=== PATIENT | female | born 1990 | race Caucasian/White ===

== ENCOUNTER 2017-11-02 09:31 | Emergency (ER) | payer OTHER, SELFPAY | END 2017-11-02 10:51 | disposition home or self-care (01) | PROVIDERS: Emergency Provider Nurse Practitioner; Visit Provider Nurse Practitioner | DX: J32.0 Chronic maxillary sinusitis (principal) | CPT/HCPCS: 71020; 87804; 87880; 99201 ==

== ENCOUNTER → 2018-01-15 11:51 | Outpatient (CLI) | payer OTHER, SELFPAY ==
--- NOTE | 2018-01-15 | US_ITS ---
US OB transvaginal HISTORY: Evaluate gestational age in this early gestation ITS.REASON: DTES ORDERING PHYSICIAN: Grayson Lubin MD PATIENT AGE: 28 years COMPARISON: None FINDINGS: There is an intrauterine gestational sac present which measures 1.18 cm with a yolk sac noted measuring 3.5 mm. There may be a very early pole. This however is too small to determine. Unremarkable adnexa. IMPRESSION: Intrauterine gestational sac with yolk sac. Cannot confirm viability at this time due to the small size. Recommend follow-up ultrasound and beta hCG.
[2018-01-15 12:30] LABS: Basophils % 0.3 % (0.1-2.0); Eosinophils % 0.5 % (0.1-12.0); Hematocrit 44.1 % (37.0-47.0); Hemoglobin 14.5 g/dL (12.2-16.2); Lymphocytes # 1.9 K/mm3 (0.7-4.5); Lymphocytes % 23.6 K/mm3 (10-50); Mean Corpuscular HGB Conc 32.9 g/dL (31.8-35.4); Mean Corpuscular Volume 88.1 fl (81-99); Mean Platelet Volume 7.7 fl (7.4-10.4); Monocytes # 0.4 K/mm3 (0.1-1.0); Monocytes % 5.1 % (1.7-9.3); Neutrophils # 5.6 K/mm3 (1.8-7.8); Neutrophils % 70.5 % (37.0-80.0); Platelet Count 303 K/mm3 (142-424); Red Blood Count 5.01 M/mm3 (4.20-5.40); Red Cell Distribution Width 12.5 % (11.5-17.5); White Blood Count 7.9 K/mm3 (4.8-10.8)
[2018-01-18 11:52] LABS: HIV Screen 4th Generation wRfx Non Reactive (Non Reactive); Hepatitis B Surface Antigen Negative (Negative); Hepatitis C Antibody <0.1 s/co ratio (0.0-0.9); Rapid Plasma Reagin Ab Titer Non Reactive (NonRea<1:1); Rubella Antibodies, IgG 2.35 index (Immune >0.99)
== END ==
PROVIDERS: Family Provider Nurse Practitioner Family; Visit Provider Nurse Practitioner Obstetrics & Gynecology
DX: Z34.90 Encounter for supervision of normal pregnancy, unspecified, unspecified trimester (principal)
CPT/HCPCS: 36415; 76830; 85025; 86592; 86703; 86762; 86850; 87340; 87380; G0432

== ENCOUNTER → 2018-01-23 14:40 | Outpatient (CLI) | payer OTHER, SELFPAY ==
--- NOTE | 2018-01-23 14:40 | US_ITS ---
US OB transvaginal HISTORY: Evaluate for gestational age. Follow-up previous exam ITS.REASON: Recheck for DATES ORDERING PHYSICIAN: Grayson Lubin MD PATIENT AGE: 28 years COMPARISON: 01/15/2018 FINDINGS: An intrauterine gestational sac is once again noted with a yolk sac present. There is a question of an pole measuring 1.7 mm. heart tones are still not demonstrated. Cannot confirm viability at this time. Recommend continued follow-up and correlation with beta hCGs. The mean sac diameter is 1.79 cm. Mean gestational sac diameter was not calculated on the previous exam however, the gestational sac does appear slightly larger with the largest diameter at 2.1 cm on today's study previously at 1.2 cm. Adnexa are unremarkable. IMPRESSION: 1. Persistent age gestational sac with yolk sac and possible pole. No heart tones evident. The pole is too small to calculate age. 2. Cannot confirm viability at this time. Recommend continued monitoring with ultrasound and beta hCGs.
[2018-01-23 18:35] LABS: HCG,Quantitative 44124 mIU/mL
== END ==
PROVIDERS: Family Provider Nurse Practitioner Family; Visit Provider Nurse Practitioner Obstetrics & Gynecology
DX: O26.841 Uterine size-date discrepancy, first trimester (principal); Z34.90 Encounter for supervision of normal pregnancy, unspecified, unspecified trimester
CPT/HCPCS: 36415; 76830; 84702

== ENCOUNTER → 2018-01-25 12:23 | Outpatient (CLI) | payer OTHER, SELFPAY | PROVIDERS: PCP Nurse Practitioner Obstetrics & Gynecology; Visit Provider Nurse Practitioner Obstetrics & Gynecology | DX: Z34.90 Encounter for supervision of normal pregnancy, unspecified, unspecified trimester (principal) ==

== ENCOUNTER → 2018-01-25 12:46 | Outpatient (REF) | payer OTHER, SELFPAY | LOC: LAB 12:46 | PROVIDERS: Visit Provider Nurse Practitioner Obstetrics & Gynecology | DX: Z32.00 Encounter for pregnancy test, result unknown (principal) | CPT/HCPCS: 84702 ==

== ENCOUNTER → 2018-01-29 13:54 | Outpatient (CLI) | payer OTHER, SELFPAY ==
--- NOTE | 2018-01-29 14:01 | US_ITS ---
US OB transvaginal HISTORY: Evaluate gestational age ITS.REASON: dates ORDERING PHYSICIAN: Grayson Lubin MD PATIENT AGE: 28 years COMPARISON: 01/23/2018 FINDINGS: An intrauterine gestational sac is present with a pole with a crown-rump length of 0.29cm correlating to gestational age of 6w3d. heart tones are still not identified. The crown-rump length has however slightly increased in size. Follow-up exam recommended. Yolk sac is once again noted but has a somewhat thickened appearance compared to the previous exam. IMPRESSION: pole is once again noted with a crown-rump length correlating to gestational age of 6 weeks and 3 days. heart tones however are not demonstrated. Cannot confirm viability at this time. The yolk sac is also somewhat thickened. Suggest continued follow-up as well as correlation with beta hCGs.
== END ==
PROVIDERS: Family Provider Nurse Practitioner Family; PCP Nurse Practitioner Obstetrics & Gynecology; Visit Provider Nurse Practitioner Obstetrics & Gynecology
DX: O26.841 Uterine size-date discrepancy, first trimester (principal)
CPT/HCPCS: 76830

== ENCOUNTER → 2018-02-05 09:47 | Outpatient (CLI) | payer OTHER, SELFPAY ==
--- NOTE | 2018-02-05 10:04 | US_ITS ---
US OB transvaginal HISTORY: Follow-up early gestation ITS.REASON: FU OB ORDERING PHYSICIAN: Grayson Lubin MD PATIENT AGE: 28 years COMPARISON: 01/29/2018 FINDINGS: There is an intrauterine gestational sac chest a somewhat irregular appearance. A small area of increased echogenicity is present along the inferior wall the gestational sac and may be due to a collapsing yolk sac. No pole or heart tones evident. Unremarkable adnexa. IMPRESSION: Intrauterine gestational sac with a somewhat irregular appearance with collapsing yolk sac and no obvious pole or heart tones consistent with nonviable gestation
[2018-02-05 12:05] LABS: HCG,Quantitative 39635 mIU/mL
== END ==
PROVIDERS: Family Provider Nurse Practitioner Family; PCP Nurse Practitioner Obstetrics & Gynecology; Visit Provider Nurse Practitioner Obstetrics & Gynecology
DX: Z34.90 Encounter for supervision of normal pregnancy, unspecified, unspecified trimester (principal)
CPT/HCPCS: 76830; 84702

== ENCOUNTER → 2019-06-17 16:29 | Outpatient (CLI) | payer OTHER, SELFPAY ==
[2019-06-17 16:52] LABS: Basophils % 0.3 % (0.1-2.0); Eosinophils # 0.1 K/mm3 (0.0-0.4); Eosinophils % 0.7 % (0.1-12.0); Hematocrit 39.7 % (37.0-47.0); Lymphocytes # 1.8 K/mm3 (0.7-4.5); Lymphocytes % 22.4 % (10-50); Mean Corpuscular HGB Conc 32.7 g/dL (31.8-35.4); Mean Corpuscular Hemoglobin 27.5 pg (27.0-31.2); Mean Corpuscular Volume 84.2 fl (81-99); Mean Platelet Volume 7.2 fl (7.4-10.4); Monocytes # 0.4 K/mm3 (0.1-1.0); Monocytes % 5.3 % (1.7-9.3); Neutrophils # 5.8 K/mm3 (1.8-7.8); Neutrophils % 71.3 % (37.0-80.0); Platelet Count 338 K/mm3 (142-424); Red Blood Count 4.71 M/mm3 (4.20-5.40); Red Cell Distribution Width 13.5 % (11.5-17.5); White Blood Count 8.2 K/mm3 (4.8-10.8)
[2019-06-19 08:17] LABS: HIV Screen 4th Generation wRfx Non Reactive (Non Reactive)
[2019-06-19 11:13] LABS: Hepatitis B Surface Antigen Negative (Negative); Hepatitis C Antibody <0.1 s/co ratio (0.0-0.9); Rapid Plasma Reagin Ab Titer Non Reactive (NonRea<1:1); Rubella Antibodies, IgG 1.92 index (Immune >0.99)
== END ==
PROVIDERS: Visit Provider Nurse Practitioner Obstetrics & Gynecology
DX: Z34.90 Encounter for supervision of normal pregnancy, unspecified, unspecified trimester (principal)
CPT/HCPCS: 36415; 85025; 86592; 86703; 86762; 86850; 87340; 87380; G0432

== ENCOUNTER → 2019-06-18 12:03 | Outpatient (CLI) | payer OTHER, SELFPAY ==
[2019-06-18 13:37] LABS: HCG,Quantitative 3217 mIU/mL
== END ==
PROVIDERS: Visit Provider Nurse Practitioner Obstetrics & Gynecology
DX: Z34.90 Encounter for supervision of normal pregnancy, unspecified, unspecified trimester (principal)
CPT/HCPCS: 36415; 84702

== ENCOUNTER → 2019-06-25 12:09 | Outpatient (CLI) | payer OTHER, SELFPAY ==
--- NOTE | 2019-06-25 12:12 | US_ITS ---
PROCEDURE: US OB TRANSVAGINAL CLINICAL INDICATION: Recheck fetus/DATES COMPARISON: [facility] US OB transvaginal from 02/05/2018 FINDINGS: An intrauterine gestational sac is present with a pole with a crown-rump length of 0.52 cm correlating to gestational age of 6.29 week. heart tones are present with an FHR of 115 bpm. Yolk sac is noted. Adnexa: There is a 1.7 cm right ovarian cyst IMPRESSION: Live intrauterine gestation with a gestational age of 6 weeks 2 days Estimated due date by Ultrasound is 02/16/2020 Dictated by: Josr Bear MD 06/26/2019 14:24 Signed by: <Electronically signed by Josr Bear MD in [place]> 06/26/2019 14:24
== END ==
PROVIDERS: PCP Nurse Practitioner Obstetrics & Gynecology; Visit Provider Nurse Practitioner Obstetrics & Gynecology
DX: Z34.90 Encounter for supervision of normal pregnancy, unspecified, unspecified trimester (principal)
CPT/HCPCS: 76817

== ENCOUNTER → 2019-09-30 12:43 | Outpatient (CLI) | payer OTHER, SELFPAY ==
--- NOTE | 2019-09-30 12:45 | US_ITS ---
PROCEDURE: US OB /MATERNAL DETAIL CLINICAL INDICATION: US OB Complete COMPARISON: US OB TRANSVAGINAL from 06/25/2019 FINDINGS: Single viable intrauterine gestation. Breech position. Placenta: Anteriorplacenta grade 1. There is average amount fluid. The cervix appears satisfactory. Closed and measuring 3 cm in length. Complete survey performed and was unremarkable on the submitted images as in PACS. No discrete anomalies identified on survey imaging by technologist. Active fetus. Three-vessel cord with satisfactory umbilical cord insertion. 4- chamber heart noted. Survey of brain & ventricles Unremarkable. Face and neck survey unremarkable. Diaphragm and chest views unremarkable. Abdomen: Both kidneys noted and unremarkable. Stomach noted and satisfactory. Spine: Survey of the spine satisfactory with no anomalies identified nor imaged. Both arms and legs noted. Amniotic Fluid: Adequate. Maternal adnexa: No significant findings. Measurements: Average ultrasound age 20 weeks 4 days. Gestational Age 20 weeks 1 day Estimated due date by ultrasound age 0402/13/2020. Estimated weight 353.1 ggrams. BPD = 20/6 OFD = 21/2 HC = 20/3 AC = 20/4 FL = 20/2 Growth Percentile= 62 percent% Heart Rate = 155 bpm Cerebellum = 20/4 Humerus = 21/1 HC/AC is 1.16 CI is 0.77 FL/BPD is 0.67 FL/AC is 0.21 IMPRESSION: There is a single live fetus which is in breech presentation with an average ultrasound age 20 weeks and 4 days. All parameters correlate with no obvious anomalies. Please see above for detail Dictated by: Josr Bear MD 09/30/2019 17:37 Electronically signed by Josr Bear MD in [place] 09/30/2019 17:37
== END ==
PROVIDERS: PCP Nurse Practitioner Obstetrics & Gynecology; Visit Provider Nurse Practitioner Obstetrics & Gynecology
DX: Z36.0 Encounter for antenatal screening for chromosomal anomalies (principal)
CPT/HCPCS: 76811

== ENCOUNTER → 2019-11-12 08:20 | Outpatient (CLI) | payer OTHER, SELFPAY ==
[2019-11-12 08:45] LABS: Glucose,Fasting 96 mg/dL (60-105)
[2019-11-12 10:07] LABS: Glucose 1 Hour 107 mg/dL (74-106)
== END ==
PROVIDERS: Visit Provider Nurse Practitioner Obstetrics & Gynecology
DX: Z34.90 Encounter for supervision of normal pregnancy, unspecified, unspecified trimester (principal)
CPT/HCPCS: 36415; 82951

== ENCOUNTER → 2019-12-09 15:15 | Outpatient (CLI) | payer OTHER, SELFPAY ==
--- NOTE | 2019-12-09 15:16 | CA_ITS ---
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: CT Indications dvt in , swollen right foot, calf Vein Imaging CFV (R): compressive, spontaneous, phasic, augmentation SFJ (R): compressive, spontaneous, phasic, augmentation FEM (R): compressive, spontaneous, phasic, augmentation POP (R): compressive, spontaneous, phasic, augmentation DFV (R): compressive, spontaneous, phasic, augmentation PTV (R): compressive, spontaneous, phasic, augmentation GSV (R): compressive, spontaneous, phasic, augmentation SSV (R): compressive, spontaneous, phasic, augmentation Peroneals (R):compressive, spontaneous, phasic, augmentation GAS (R): compressive, spontaneous, phasic, augmentation Findings RLE negative for DVT/SVT Vessels fully compressible. Conclusion No evidence of DVT or superficial thrombophlebitis in the veins scanned of the right lower extremity. Electronically signed by : Josr Bear MD 12/10/2019 18:16:19
== END ==
PROVIDERS: Visit Provider Nurse Practitioner Obstetrics & Gynecology
DX: O22.30 Deep phlebothrombosis in pregnancy, unspecified trimester (principal)
CPT/HCPCS: 93971

== ENCOUNTER → 2020-01-20 17:58 | Outpatient (CLI) | payer OTHER, SELFPAY | PROVIDERS: Visit Provider Nurse Practitioner Obstetrics & Gynecology | DX: Z34.90 Encounter for supervision of normal pregnancy, unspecified, unspecified trimester (principal) | CPT/HCPCS: 86403 ==

== ENCOUNTER 2020-01-27 11:53 | Inpatient (IN) ==
[2020-01-27 12:46] LABS: Microscopic, Urine URINE MICROSCOPIC (MICROSCOPIC)
[2020-01-27 12:48] LABS: Appearance,Urine CLEAR (Clear); Bilirubin,Urine Negative (Negative); Blood, Urine TRACE-I (Negative); Color,Urine YELLOW (Yellow); Glucose,Urine (UA) Negative (Negative); Ketones,Urine Negative (Negative); Leukocyte Esterase,Urine Negative (Negative); Protein,Urine Negative (Negative); Urobilinogen,Urine 0.2 EU/dl (0.2)
[2020-01-27 12:56] LABS: Bacteria,Urine Trace /lpf; RBC,Urine Occasional #/hpf (0-3); WBC,Urine Occasional #/hpf (0-3)
[2020-01-27 12:58] LABS: Amphetamine/Metha Screen,Urine Negative ng/ml (<1000)
[2020-01-27 12:59] LABS: Barbiturates Screen,Urine Negative ng/ml (<200)
[2020-01-27 13:00] LABS: Anion Gap 12.7 mEq/L (5-15); Calcium 9.3 mg/dl (8.4-10.2); Uric Acid 5.4 mg/dl (2.5-6.2)
[2020-01-27 13:00] LABS: Benzodiazepines Screen,Urine Negative ng/ml (<200); Cannabinoid Screen,Urine Negative ng/ml (<50)
[2020-01-27 13:01] LABS: Cocaine Screen,Urine Negative ng/ml (<300)
[2020-01-27 13:02] LABS: Methadone Screen,Urine Negative ng/ml (<300); Opiate Screen,Urine Negative ng/ml (<300)
[2020-01-27 13:03] LABS: Phencyclidine Screen,Urine Negative ng/ml (<25)
[2020-01-27 13:07] LABS: Basophils % 0.2 % (0.1-2.0); Eosinophils # 0.1 K/mm3 (0.0-0.4); Eosinophils % 0.4 % (0.1-12.0); Hematocrit 34.7 % (37.0-47.0); Hemoglobin 11.5 g/dL (12.2-16.2); Lymphocytes # 1.9 K/mm3 (0.7-4.5); Lymphocytes % 12.6 % (10-50); Mean Corpuscular HGB Conc 33.1 g/dL (31.8-35.4); Mean Corpuscular Volume 82.7 fl (81-99); Mean Platelet Volume 8.4 fl (7.4-10.4); Monocytes # 0.7 K/mm3 (0.1-1.0); Monocytes % 4.7 % (1.7-9.3); Neutrophils # 12.4 K/mm3 (1.8-7.8); Neutrophils % 82.3 % (37.0-80.0); Platelet Count 300 K/mm3 (142-424); Red Blood Count 4.19 M/mm3 (4.20-5.40); Red Cell Distribution Width 13.9 % (11.5-17.5); White Blood Count 15.1 K/mm3 (4.8-10.8)
[2020-01-27 13:31] LABS: Activated Partial Thrombo Time 25.2 seconds (23.6-34.0); INR 0.9 (0.9-1.1); Prothrombin Time 9.4 seconds (9.4-11.8)
[2020-01-27 13:35] LABS: Eosinophils % 1 % (0-3); Lymphocytes % 13 % (10-50); Monocytes % 6 % (2-9); Neutrophils % 80 % (42-76); RBC Morphology Normal; Total Cells Counted 100
--- NOTE | 2020-01-28 08:11 | Progress Note ---
Labor Note - Subjective: Date: 01/28/20 Time: 08:09 regular contraction - Objective: NST:: Reactive Contractions:: every 2-3 minutes Effacement:: 75% Station: -2 Membranes: artificially ruptured Comment:: Clear fluid - Fetus: Monitoring?: Yes monitoring type:: External - Assessment: Labor progressing?: Yes Cephalopelvic disproportion?: No Patient Problems: All Active Problems Edema of lower extremity (Acute) Maxillary sinusitis, acute (Acute) (Acute) - Plan: Anesthesia for epidural?: Yes Continue to labor down?: Yes Plan for ?: No Continue to monitor?: Yes Start pushing?: No
--- NOTE | 2020-01-28 08:14 | History & Physical Report ---
OB - H&P: HPI Antepartum - History of Present Illness Chief complaint: Increased blood pressure History of present illness: She is a 30-year-old 1 para 0 who was seen in my office. She had increased blood pressure. Her blood pressure was 150/101. She had a headache, brisk reflexes and 2 beats of clonus. As result of that we are admitting her for observation and delivery. - History of Present Criteria for establishing EDC:: LMP confirmed by 1st trimester US care: good care Ultrasounds: normal 1st trimester US, normal mid trimester US Obstetrical complications: preeclampsia Medical complications: none [facility] History I have reviewed the patient's past medical history: Yes 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: Denies:: Cancer, Diabetes Mellitus Type 1, Diabetes Mellitus Type 2, Hypertension, MRSA *Have you ever received a pneumonia vaccine?: No *Have you received a flu vaccine this season?: Yes Other 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: Reports: Other Other Surgeries: Yes: No Previous Surgery. 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 Review of Systems - Review of Systems Review of systems:: pertinent systems reviewed and negative unless documented below Meds Home Medications Medication Instructions Recorded Confirmed Type prenat.vits,biju,asm-kzdo-ozivj 1 tab PO DAILY 10/08/19 01/27/20 History RX: Ferrous Sulfate 325 mg PO DAILY 01/27/20 01/27/20 History Allergies Allergy/AdvReac Type Severity Reaction Status Date / Time cefaclor [From [facility]] Allergy Unknown Verified 01/27/20 11:08 OB - H&P: Exam - Physical Exam Vital signs: Temp Pulse Resp BP Pulse Ox 97.5 F L 93 H 20 122/96 H 98 01/28/20 07:20 01/28/20 07:20 01/28/20 07:20 01/28/20 07:20 01/28/20 07:20 - Constitutional no acute distress - Routine HEENT Exam Head: Present: normocephalic Eye: Present: EOMI, PERRL ENT: Present: mucous membranes moist - Routine Neck Exam Present: supple, full ROM - Routine Respiratory Exam Absent: accessory muscle use (good air entry bilaterally), respiratory distress, wheezes, crackles - Routine Cardiovascular Exam Present: RRR. Absent: murmur - Routine Abdominal Exam Present: soft, normoactive bowel sounds. Absent: tenderness, distended, guarding - Routine Rectal Exam Patient deferred: visual exam, digital exam - Routine Exam Patient deferred: external exam, groin exam, perineal exam - Routine Extremities Exam Present: full ROM. Absent: cyanosis, edema - Routine Skin Exam Present: intact. Absent: cyanosis - Routine Neurological Exam Present: alert, oriented X3 - Routine Psychiatric Exam Present: normal affect OB - Results - Labs Labs: Short CBC 01/27/20 Range/Units 12:27 WBC 15.1 H (4.8-10.8) K/mm3 Hgb 11.5 L (12.2-16.2) g/dL Hct 34.7 L (37.0-47.0) % Plt Count 300 (142-424) K/mm3 BMP 01/27/20 12:27 Sodium 135 L Potassium 3.7 Chloride 106 Carbon Dioxide 20 L BUN 7 Creatinine 0.60 Glucose 75 Calcium 9.3 Liver Function 01/27/20 Range/Units 12:27 AST 24 (14-36) U/L ALT 14 (12-78) U/L Urine 01/27/20 Range/Units 12:05 Urine Color Yellow (Yellow) Urine Appearance Clear (Clear) Urine pH 6.0 (5.0-8.5) Ur Specific [place] 1.010 (1.005-1.030) Urine Protein Negative (Negative) Urine Glucose (UA) Negative (Negative) OB - A/P Antepartum (1) induced hypertension Current visit: Yes Status: Acute (2) Large for gestational age fetus affecting management of mother Current visit: Yes Status: Acute - Additional Plan Planning to breastfeed?: Yes Plan: induction Additional Information:: She is 37 weeks with a large for gestational age . Her blood pressure is elevated. As result of that we are going to induce her labor.
--- NOTE | 2020-01-28 09:36 | Progress Note ---
[facility] Anesthesia Checklist - Structural Data Admitted From: Inpatient Planned Operative Procedure/s: labor epidural Consent for Planned Operative Procedure(s) Verified: Yes - Airway Assessment C-Spine Mobility Assessed: Yes TMJ Mobility Assessed: Yes Dentition: Good Dentition - Neurological Assessment Level of Consciousness: Awake, Alert, Appropriate - Anesthesia Plan Anesthesia Risk discussed: Yes Anesthesia Plan: Verified ASA Class: II Anesthesia Type: Epidural [facility] History I have reviewed the patient's past medical history: Yes 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: Denies:: Cancer, Diabetes Mellitus Type 1, Diabetes Mellitus Type 2, Hypertension, MRSA *Have you ever received a pneumonia vaccine?: No *Have you received a flu vaccine this season?: Yes Other 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: Reports: Other Anesthesia experience/problems:: none Other Surgeries: Yes: No Previous Surgery. 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
--- NOTE | 2020-01-28 11:31 | Progress Note ---
Labor Note - Subjective: Date: 01/28/20 Time: 11:30 regular contraction - Objective: NST:: Reactive Contractions:: every 2-3 minutes Cervical Dilation:: 4 Effacement:: 100% Station: -2 Membranes: artificially ruptured - Fetus: Monitoring?: Yes monitoring type:: Internal Comment:: I inserted an IUPC as well as a scalp clip. - Assessment: Labor progressing?: Yes Cephalopelvic disproportion?: No Patient Problems: All Active Problems Large for gestational age fetus (Acute) induced hypertension (Acute) Large for gestational age fetus affecting management of mother (Acute) Edema of lower extremity (Acute) Maxillary sinusitis, acute (Acute) (Acute) - Plan: Anesthesia for epidural?: Yes Continue to labor down?: Yes Plan for ?: No Continue to monitor?: Yes Start pushing?: No
--- NOTE | 2020-01-28 15:31 | Procedure Note ---
- Delivery Note Delivery Date:: 01/28/20 Delivery Time:: 14:16 Anesthesia Type: Epidural Was labor medically induced?: Yes Induction method: other Gestational age (weeks): 37 Infant delivered prior to 39 weeks?: Yes Justification for early elective delivery:: Pre-eclampsia Infant Gender: Male at 1 minute: 8 at 5 minutes: 9 LAC or MLE?: LAC Delivery Procedure:: She is a 30-year-old 1 para 0 at 37+ weeks gestational age. She was seen in my office yesterday and had increased blood pressure with her blood pressure being 150/101. She had a mild headache. She had brisk reflexes and 2 beats of clonus. Her uric acid was slightly elevated. As result of that we elected to induce her labor at term. She was started on Cervidil in the evening of January 27, 2020. The following morning she had her membranes ruptured and was started on IV oxytocin. She progressed under labor epidural to full dilation. She delivered spontaneously a liveborn male child at 2:16 PM in the afternoon of January 28, 2020. On deliver the head the anterior shoulder then easily delivered followed by the rest the infant's body atraumatically. The oropharynx and nasopharynx were bulb suction. The baby was vigorous. We allowed the cord to continue to pulsate for approximately 1 minute. The cord was then doubly clamped and cut. The baby was then placed on the mother's abdomen for further care. The nurses assigned Apgars of 8 at 1 minute and 9 at 5 minutes. We then obtained cord blood as well as cord pH. She received IV oxytocin and using gentle traction on the cord and countertraction on the fundus I was able to easily deliver the placenta intact at 2:20 PM. He had a normal three-vessel cord. There is a small first-degree vaginal laceration that was repaired with interrupted 3-0 Vicryl Rapide suture. Her estimated blood loss was approximately 400 cc. Laceration:: vaginal Placental Delivery Description: Spontaneous
[2020-01-29 06:16] LABS: Hematocrit 31.8 % (37.0-47.0); Hemoglobin 10.5 g/dL (12.2-16.2)
--- NOTE | 2020-01-29 11:18 | Progress Note ---
Internal Medicine - PN: Subj *Date: 01/29/20 *Time: 11:17 Interval history: She is doing very well this morning. She is eating and drinking and ambulating. She is bottlefeeding. Her lochia is normal. Exam Vital signs and Labs for Last 24 Hours: Temp Pulse Resp BP Pulse Ox 98.1 F 89 18 122/75 98 01/28/20 16:00 01/28/20 16:00 01/28/20 16:00 01/28/20 16:00 01/28/20 16:00 Laboratory Results - last 24 hr 01/28/20 14:26: Cord ABG pH 7.14 L* 01/29/20 05:20: Hgb 10.5 L, Hct 31.8 L I & O for Last 24 hours: Intake & Output 01/26/20 01/27/20 01/28/20 01/29/20 11:59 11:59 11:59 11:59 Weight 200 lb - Constitutional no acute distress - *Routine HEENT Exam Head: Present: normocephalic Eye: Present: EOMI, PERRL ENT: Present: mucous membranes moist Assessment and Plan (1) induced hypertension Current visit: Yes Status: Acute Category: Medical Code(s): O13.9 - Gestational [-induced] hypertension without significant proteinuria, unspecified trimester (2) Large for gestational age fetus affecting management of mother Current visit: Yes Status: Acute Category: Medical Code(s): O36.60X0 - Maternal care for excessive growth, unspecified trimester, not applicable or unspecified (3) Normal delivery Current visit: Yes Status: Acute Category: Medical Code(s): O80 - Encounter for full-term uncomplicated delivery - Assessment and plan all Dx Assessment and Plan for all problems:: She is doing very well today. We will plan to send her home tomorrow.
--- NOTE | 2020-01-30 09:08 | Discharge Summary ---
General - General Admission date:: 01/27/20 Discharge date: 01/30/20 HPI HPI: She is a 30-year-old 3 now para 1 aborta 2 who is 37+ weeks gestational age. She was noted to have increased blood pressure in my office and also had a large for gestational age infant. As result of that we elected to bring her in for induction of labor. Hospital Course Hospital Course: On 28 April 2020 she was brought in for Cervidil and then started on IV oxytocin. Under labor epidural she progressed to full dilation and delivered spontaneously a liveborn male child at 2:16 PM in the afternoon of January 28, 2020. The baby weighed 7 pounds 8 ounces and was 19 inches long. He had Apgars of 8 at 1 minute and 9 at 5 minutes. She has done well and has remained afebrile throughout her hospitalization. She is eating and drinking and ambulating. She is bottlefeeding. Her lochia is normal. She has a positive blood, she is rubella immune and was group B streptococcus negative. 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 Jimenez. She is discharged home to follow-up with me in approximately 2 weeks time. She will continue with her vitamins and iron. She is just taking [id number] analgesics. Her condition on discharge is stable and improved. Rhogam Administration: Not Indicated Objective Vital signs: Temp Pulse Resp BP Pulse Ox 98.1 F 87 17 126/72 98 01/29/20 16:00 01/29/20 16:00 01/29/20 16:00 01/29/20 16:00 01/28/20 16:00 no acute distress - *Routine HEENT Exam Head: Present: normocephalic Eye: Present: EOMI, PERRL ENT: Present: mucous membranes moist DS: Diagnosis - Discharge Diagnosis (1) induced hypertension Status: Acute (2) Large for gestational age fetus affecting management of mother Status: Acute (3) Normal delivery Status: Acute Discharge Plan - Patient Discharge Instructions ACTIVITY: No heavy lifting DIET: continue same diet Additional Instructions: NO HEAVY LIFTING OR STRENUOUS ACTIVITY NOTHING IN VAGINA FOR [address] FOLLOW-UP WITH DR. FISCHER ON Patient Instructions: Depression, Hemorrhage, DI for Pre- eclampsia, DI for Vaginal Discharge, [facility] Post Discharge Instructions - Follow up Plan Disposition: Home, Self-Usp Medications: Home Medications Medication Instructions Recorded Confirmed Type prenat.vits,biju,kwx-bblt-ixpbz 1 tab PO DAILY 10/08/19 01/27/20 History Ferrous Sulfate 325 mg PO DAILY 01/27/20 01/27/20 History Prescriptions/Medication Reconciliation: Continued prenat.vits,biju,nzu-yttq-vdvyx 1 tab PO DAILY Ferrous Sulfate 325 mg PO DAILY - Problem Reconciliation Problems Reviewed?: Yes
== END 2020-01-30 10:32 | disposition home or self-care (01) | DRG 807 ==
LOC: OBOUT 11:53 → OB 11:55
PROVIDERS: ADMIT Nurse Practitioner Obstetrics & Gynecology; ATTEND Nurse Practitioner Obstetrics & Gynecology
CPT/HCPCS: 36415; 59025; 76819; 80048; 80305; 81001; 82800; 84450; 84460; 84550; 85007; 85014; 85018; 85025; 85378; 85384; 85610; 85730; 86850; C1758; J0595

== ENCOUNTER 2021-12-14 15:30 | Emergency (ER) | payer OTHER, SELFPAY ==
[2021-12-14 16:00] VITALS: BP 134/86; PULSE 105; RESP 18; TEMP 37.2; O2SAT 98; BMI 26.6
[2021-12-14 16:07] LABS: Influenza A, PCR Not Detected (NotDetected); Influenza B, PCR Not Detected (NotDetected)
--- NOTE | 2021-12-14 16:32 | [facility].EDUTC ---
[facility] [place] Clinical Impression: URI (upper respiratory infection) Qualifiers: URI type: unspecified URI Qualified Code(s): J06.9 - Acute upper respiratory infection, unspecified Disposition: Home, Self-Care Condition on Discharge: Good Instructions: Sore Throat, Acute Bronchitis, DI for COVID-19 (Suspected or Confirmed ), Preventing the Spread of Coronavirus Discharge Instructions Additional Instructions: *Monitor Temp, Over the counter Motrin or Tylenol as directed/as needed Tylenol every 4 hours and Motrin every 6 hours (as long as your family doctor has told you that you can take it) for fever or pain. and straight to ER if unable to lower temp less than 101.0 after medication given *Warm salt water gargles may help to soothe the throat *Throat Lozenges *Warm fluids like tea with honey may help to soothe the throat *Sleep elevated *Humidifier/Vaporizer Follow up IMMEDIATELY for new or worsening symptoms or no Noticeable improvement over the next 48-72 hours. 911 for difficulty breathing or swallowing You were tested for today for COVID19 your test result should be back in the next couple hours you may check your results on the [facility] portal if you have trouble logging on you may call support to help you If you are positive someone from the hospital will be calling you Make sure to take your Vitamins Vit. C Vit D and Zinc if you can take them Prescriptions: methylPREDNISolone [Medrol 4mg tab] 4 mg PO DIRECTED #21 tab Transmission Status: Pending to [facility] # Azithromycin [Z-Luis 250mg Tab] 250 mg PO DIRECTED #6 tab Transmission Status: Pending to [facility] # Referrals: Provider,Referral, [Primary Care Provider] - As needed Forms: Work/School Release Time of Disposition: 16:36 Medical Decision Making - Kris Inquiry Pt receiving controlled substance: No Kris was queried for this patient: No Vital Signs: 12/14/21 16:00 Temperature 99.0 F Temperature Source Oral Pulse Rate [Right Brachial] 105 H Respiratory Rate 18 Blood Pressure [Right Arm] 134/86 Blood Pressure Mean [Right Arm] 102 Blood Pressure Source [Right Arm] Automatic Cuff Blood Pressure Position [Right Arm] Sitting 02 Sat by Pulse Oximetry 98 Oxygen Delivery Method Room Air - Lab Data Lab results reviewed: Yes: I reviewed the patient's lab results. Lab Results 12/14/21 15:49: SARS-CoV-2 (PCR) Detected A, Influenza A Untype (PCR) Not detected, Influenza Type B (PCR) Not detected [facility] [place] - General Stated complaint: Chest congestion,HUFF Time Seen by Provider: 12/14/21 16:32 Mode of Arrival: Ambulatory Source of Information: Patient Limitations: No Limitations Description of Symptoms (Recalled from Triage Doc. by RN): PATIENT C/O CHEST CONGESTION, DRY COUGH AND HEADACHE THAT STARTED TODAY. SHE REPORTS HER IS POSITIVE, BUT SHE HAS BEEN STAYING AT HER MOTHER'S HOUSE HEENT Symptoms (Recalled from RN notes): Yes Resp Symptoms (Recalled from RN notes): Yes Skin Symptoms (Recalled from RN notes): No MS Symptoms (Recalled from RN notes): No Functional Status (Recalled from RN notes): WNL - History of Present Illness Provider Complaint: Patient state that her was recently positive for COVID but she has been staying away from him States that today she is feeling like she is having some chest congestion, scratchy throat and over all not feeling well States that she has a history of pneumonia and feels like she does when she is starting to get sick with it - Related Data Previous Rx's Medication Instructions Recorded sertraline 50 mg tablet 50 mg PO DAILY #90 tab 02/19/21 fluconazole 150 mg tablet 150 mg PO Q3D 0 Days #2 tab 05/10/21 nystatin 100,000 unit/gram topical 1 applic TOPICAL BID PRN #30 g 05/10/21 powder Azithromycin [Z-Luis 250mg Tab] 250 mg PO DIRECTED #6 tab 12/14/21 methylPREDNISolone [Medrol 4mg 4 mg PO DIRECTED #21 tab 12/14/21 tab
[2021-12-14 16:33] LABS: Coronavirus 19, PCR Detected (NotDetected)
[2021-12-14 16:42] VITALS: BP 134/86; PULSE 105; RESP 18; TEMP 37.2; O2SAT 98
== END 2021-12-14 16:49 | disposition home or self-care (01) ==
PROVIDERS: Emergency Provider Nurse Practitioner
DX: U07.1 COVID-19 (principal); J06.9 Acute upper respiratory infection, unspecified
CPT/HCPCS: 99202; C9803; G0463; U0003; U0005

== ENCOUNTER → 2022-06-16 11:50 | Outpatient (CLI) | payer OTHER, SELFPAY ==
[2022-06-16 13:38] LABS: Triiodothryronine (T3) Uptake 30 % (23.5-40.5)
[2022-06-16 13:39] LABS: Free Thyroxine Index 2.9 ug/dL (5.93-13.13); T4 (Thyroxine) 9.5 ug/dl (5.53-11.0)
== END ==
PROVIDERS: PCP Internal Medicine Adolescent Medicine; Visit Provider Obstetrics & Gynecology
DX: R63.4 Abnormal weight loss (principal); N93.9 Abnormal uterine and vaginal bleeding, unspecified; R14.0 Abdominal distension (gaseous)
CPT/HCPCS: 36415; 84436; 84443; 84479

== ENCOUNTER → 2022-06-20 10:35 | Outpatient (CLI) | payer OTHER, SELFPAY ==
--- NOTE | 2022-06-20 10:35 | US_ITS ---
FINAL REPORT CLINICAL HISTORY: irregular bleeding FINDINGS: Transvaginal sonographic images of the pelvis were obtained. The uterus measures 7.0 x 4.2 x 6.7 cm. The endometrium measures 10 mm, which is within normal limits. No uterine mass is identified. An IUD is present within the endometrial cavity. The right ovary measures 3.7 cm in length and left ovary measures 2.9 cm in length. Normal blood flow seen to the ovaries. Small follicles are present in the left ovary. There is a 1.9 cm right ovarian cyst. There is a small amount of pelvic free fluid which may be physiological or reactive. IMPRESSION: 1.9 cm right ovarian cyst. Small amount of pelvic free fluid may be physiologic or reactive. IUD present within the endometrial cavity. Reviewed, Interpreted and Dictated by Adriano Foster III, MD Transcribed by Sangita Valenzuela Authenticated and [facility]
== END ==
PROVIDERS: PCP Obstetrics & Gynecology; Visit Provider Obstetrics & Gynecology
DX: N92.6 Irregular menstruation, unspecified (principal)
CPT/HCPCS: 76830

== ENCOUNTER 2023-01-28 19:04 | Emergency (ER) | payer OTHER, SELFPAY ==
[2023-01-28 19:10] VITALS: BP 137/88; PULSE 86; RESP 20; TEMP 37; O2SAT 98; BMI 26.6
--- NOTE | 2023-01-28 19:23 | EXP.UTC ---
Discharge Plan Disposition Patient Disposition: Home, Self-Care Condition: Good Prescriptions Prescriptions: New azithromycin [azithromycin] 250 mg tablet 250 mg PO DIRECTED Qty: 4 0RF Rx Instructions: one (1) tablet day #2 thru #5- first dose given in [facility] fluticasone propionate [fluticasone propionate] 50 mcg/actuation spray,suspension 1 spray intranasal DAILY Qty: 9.9 0RF Referrals Follow up/Referrals: Seamus Aldridge MD [Primary Care Provider] - See instructions Activity Restrictions/Add. Instructions Additional Instructions/Restrictions: Start antibiotic patient to take as ordered for a full length of time even if you feel better. Sinus infections do not get better overnight. It may take 2-3 days to notice much improvement so be sure to use conservative measures as discussed for symptoms. Flonase 1 spray each nostril daily to help with nasal congestion, sinus and ear pressure/information Increase fluids Humidifier/vaporizer as needed Tylenol and ibuprofen as needed for fever or pain. If symptoms do not improve or get worse return or be seen in the ER Follow-up with primary care this week Clinical Impressions Clinical Impression: Acute maxillary sinusitis Instructions Patient Instructions: DI for Sinusitis Discharge [place] Naom[place]ck[place] [facility] [place] General Stated complaint: runny nose, body aches Mode of Arrival: Ambulatory Source of Information: Patient Limitations: No Limitations Time Seen by Provider: 01/28/23 19:23 Description of Symptoms (Recalled from Triage Doc. by RN): PATIENT C/O BLOOD-GREEN MUCOUS, CHILLS, HEADACHE, AND CONGESTION X APPROX 1.5 WEEKS HEENT Symptoms (Recalled from RN notes): Yes Resp Symptoms (Recalled from RN notes): No Skin Symptoms (Recalled from RN notes): No MS Symptoms (Recalled from RN notes): No Functional Status (Recalled from RN notes): WNL History of Present Illness Provider Complaint: 33 yr old female presents for sinus pressure,sinus pain, green bloody nasal drainage, díaz, chills,body aches and congestion for 1 1/2 weeks Related Data Previous Rx's Medication Instructions Recorded azithromycin 250 mg tablet 250 mg PO DIRECTED #4 tabs 01/28/23 fluticasone propionate 50 1 spray intranasal DAILY #9.9 mL 01/28/23 mcg/actuation nasal spray,suspension Allergies Allergy/AdvReac Type Severity Reaction Status Date / Time cefaclor [From [facility]] Allergy Unknown Verified 11/25/22 10:45 Worker's Comp Is this a Worker's Comp case?: No [facility] Disclaimer: The information contained in this section may have been updated after the patient was seen, as this information can be updated by other users. 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) Smoking Status: Never smoker alcohol intake: current substance use type: denies use current occupational status: other Travel in the last 8 weeks: None ROS Obtained: Yes All systems reviewed & no additional complaints except as documented Constitutional Constitutional: Reports system reviewed and no additional complaints, except as documented, Reports as per HPI, Reports fever(s) and Reports headache(s) Eyes Eyes: Reports system reviewed and no additional complaints, except as documented and Reports as per HPI ENT Ears, Nose, Mouth, and Throat: Reports system reviewed and no additional complaints, except as documented, Reports as per HPI, Reports headache(s), Reports nasal congestion, Reports nasal discharge, Reports post nasal drip, Reports sinus pain, Reports sinus pressure and Reports sore throat Cardiovascular Cardiovascular: Reports system reviewed and no additional complaints, except as documented and Reports as per HPI Respiratory Respiratory: Reports system reviewed and no additional complaints, except as documented Musculoskeletal Muscul
[2023-01-28 19:36] VITALS: BP 137/88; PULSE 86; RESP 20; TEMP 37; O2SAT 98
[2023-01-28 19:37] LABS: UTC Influenza A Antigen Negative (Negative); UTC Influenza B Antigen Negative (Negative)
== END 2023-01-28 19:49 | disposition home or self-care (01) ==
PROVIDERS: Emergency Provider Nurse Practitioner Family; PCP Internal Medicine Adolescent Medicine
DX: J01.00 Acute maxillary sinusitis, unspecified (principal)
CPT/HCPCS: 96372; 87804; 99212; 99214; G0463

== ENCOUNTER → 2023-02-01 15:12 | Outpatient (CLI) | payer OTHER, SELFPAY ==
[2023-02-01 16:37] LABS: HCG,Quantitative 195 mIU/ml (0-5.42)
[2023-02-03 11:51] LABS: Progesterone 14.5 ng/mL (.)
== END ==
PROVIDERS: PCP Internal Medicine Adolescent Medicine; Visit Provider Obstetrics & Gynecology
DX: Z34.90 Encounter for supervision of normal pregnancy, unspecified, unspecified trimester (principal)
CPT/HCPCS: 36415; 84144; 84702

== ENCOUNTER → 2023-02-03 08:25 | Outpatient (CLI) | payer OTHER, SELFPAY ==
[2023-02-03 09:13] LABS: HCG,Quantitative 428 mIU/ml (0-5.42)
== END ==
PROVIDERS: PCP Internal Medicine Adolescent Medicine; Visit Provider Obstetrics & Gynecology
DX: Z34.90 Encounter for supervision of normal pregnancy, unspecified, unspecified trimester (principal)
CPT/HCPCS: 36415; 84702

== ENCOUNTER → 2023-02-24 12:29 | Outpatient (CLI) | payer OTHER, SELFPAY ==
[2023-02-24 13:29] LABS: Basophils % 0.2 % (0.1-2.0); Eosinophils # 0.1 K/mm3 (0.0-0.4); Eosinophils % 0.5 % (0.1-12.0); Hematocrit 39.2 % (37.0-47.0); Hemoglobin 13.1 g/dL (12.2-16.2); Lymphocytes # 2.1 K/mm3 (0.7-4.5); Lymphocytes % 21.7 % (10-50); Mean Corpuscular HGB Conc 33.4 g/dL (31.8-35.4); Mean Corpuscular Hemoglobin 28.4 pg (27.0-31.2); Mean Platelet Volume 8.1 fl (7.4-10.4); Monocytes # 0.4 K/mm3 (0.1-1.0); Neutrophils # 7.2 K/mm3 (1.8-7.8); Neutrophils % 73.5 % (37.0-80.0); Platelet Count 288 K/mm3 (142-424); Red Blood Count 4.61 M/mm3 (4.20-5.40); Red Cell Distribution Width 13.2 % (11.5-17.5); White Blood Count 9.7 K/mm3 (4.8-10.8)
[2023-02-24 13:57] LABS: Chloride 101 mmol/L (98-107)
[2023-02-24 13:58] LABS: Potassium 3.6 mmoL/L (3.5-5.1); Sodium 136 mmol/L (136-145)
[2023-02-24 14:00] LABS: Alanine Aminotransferase 18 U/L (12-78); Albumin Level 4.4 g/dl (3.5-5.0); Albumin/Globulin Ratio 1.5 (1.1-1.8); Alkaline Phosphatase 69 U/L (38-126); Anion Gap 15.6 mEq/L (5-15); Aspartate Amino Transferase 22 U/L (14-36); Bilirubin,Total 0.4 mg/dl (0.2-1.3); Blood Urea Nitrogen 6 mg/dl (7-17); Carbon Dioxide 23 mmol/L (22.0-30.0); Estimated Glomerular Filt Rate 116 ml/min (>60); GFR (African American) 140 ML/MIN (>60); Globulin 2.9 g/dL (1.3-3.2); Total Protein,Serum 7.3 g/dl (6.3-8.2)
[2023-02-24 14:01] LABS: Calcium 9.1 mg/dl (8.4-10.2); Glucose 62 mg/dl (74-100)
[2023-02-26 10:18] LABS: HIV Screen 4th Generation wRfx Non Reactive (Non Reactive); Rapid Plasma Reagin Ab Titer Non Reactive (NonRea<1:1)
[2023-02-28 00:04] LABS: Neisseria gonorrhoeae, NAA Negative (Negative)
[2023-03-06 02:56] LABS: Hepatitis B Surface Antigen Negative; Hepatitis C Antibody Non Reactive
[2023-03-06 02:57] LABS: Rubella Antibodies, IgG 2.08
== END ==
PROVIDERS: PCP Internal Medicine Adolescent Medicine; Visit Provider Obstetrics & Gynecology
DX: O09.299 Supervision of pregnancy with other poor reproductive or obstetric history, unspecified trimester (principal); Z11.4 Encounter for screening for human immunodeficiency virus [HIV]
CPT/HCPCS: 36415; 80053; 85025; 86593; 86703; 86762; 86850; 87340; 87380; 87491; 87591; G0432

== ENCOUNTER 2023-03-30 16:12 | Outpatient (CLI) | payer OTHER, SELFPAY ==
[2023-03-30 16:57] VITALS: BMI 28.8
[2023-03-30 16:58] VITALS: BP 134/78; PULSE 122; RESP 18; TEMP 36.9; O2SAT 97; BMI 28.8
[2023-03-30 17:17] LABS: Basophils % 0.2 % (0.1-2.0); Eosinophils % 0.3 % (0.1-12.0); Hematocrit 41.7 % (37.0-47.0); Hemoglobin 13.8 g/dL (12.2-16.2); Lymphocytes # 1.3 K/mm3 (0.7-4.5); Lymphocytes % 8.4 % (10-50); Mean Corpuscular Hemoglobin 28.7 pg (27.0-31.2); Mean Corpuscular Volume 86.8 fl (81-99); Monocytes # 0.6 K/mm3 (0.1-1.0); Monocytes % 4.2 % (1.7-9.3); Neutrophils # 13.3 K/mm3 (1.8-7.8); Platelet Count 294 K/mm3 (142-424); Red Cell Distribution Width 13.8 % (11.5-17.5); White Blood Count 15.3 K/mm3 (4.8-10.8)
[2023-03-30 17:20] LABS: MANUAL DIFFERENTIAL MANUAL DIFFERENTIAL (MANUAL DIFF)
[2023-03-30 17:24] LABS: Alanine Aminotransferase 18 U/L (12-78); Albumin Level 4.5 g/dl (3.5-5.0); Albumin/Globulin Ratio 1.3 (1.1-1.8); Alkaline Phosphatase 100 U/L (38-126); Anion Gap 20.4 mEq/L (5-15); Aspartate Amino Transferase 26 U/L (14-36); Bilirubin,Total 0.5 mg/dl (0.2-1.3); Blood Urea Nitrogen 5 mg/dl (7-17); Carbon Dioxide 22 mmol/L (22.0-30.0); Chloride 97 mmol/L (98-107); Creatinine Clearance Estimated 173 mL/min (50-200); Estimated Glomerular Filt Rate 116 ml/min (>60); GFR (African American) 140 ML/MIN (>60); Globulin 3.6 g/dL (1.3-3.2); Glucose 92 mg/dl (74-100); Potassium 3.4 mmoL/L (3.5-5.1); Sodium 136 mmol/L (136-145); Total Protein,Serum 8.1 g/dl (6.3-8.2)
[2023-03-30 18:25] LABS: Eosinophils % 1 % (0-3); Lymphocytes % 14 % (10-50); Monocytes % 4 % (2-9); Neutrophils % 81 % (42-76); Platelet Estimate Normal; RBC Morphology Normal; Total Cells Counted 100
== END 2023-03-30 18:30 | disposition home or self-care (01) ==
LOC: OBOUT 16:13 → OB 16:14
PROVIDERS: PCP Internal Medicine Adolescent Medicine; Visit Provider Obstetrics & Gynecology
DX: O21.9 Vomiting of pregnancy, unspecified (principal); Z3A.12 12 weeks gestation of pregnancy
CPT/HCPCS: 80053; 85007; 85025; 96365; 96366; G0463; J2405

== ENCOUNTER → 2023-05-23 13:15 | Outpatient (CLI) | payer OTHER, SELFPAY ==
--- NOTE | 2023-05-23 13:15 | US_ITS ---
PROCEDURE: US OB /MATERNAL DETAIL CLINICAL INDICATION: 20 week anatomy scan COMPARISON: None FINDINGS: From her established due date she is 20 weeks 0 days. Single viable intrauterine gestation. Breech position. Placenta: Anteriorplacenta grade 1. There is average amount fluid. The cervix appears satisfactory. Closed and measuring 3.8 cm in length. Complete survey performed and was unremarkable on the submitted images as in PACS. No discrete anomalies identified on survey imaging by technologist. Active fetus. Three-vessel cord with satisfactory umbilical cord insertion. 4- chamber heart noted. Situs. Aortic arch, LVOT, RVOT appear normal. Survey of brain & ventricles Unremarkable. Choroid plexus, thalamus, cerebellum, cisterna magna appear normal. Face and neck survey unremarkable. Profile, upper lip, nose, nasion appear normal. Diaphragm and chest views unremarkable. Abdomen: Both kidneys noted and unremarkable. Stomach noted and satisfactory. Bladder appears normal Spine: Survey of the spine satisfactory with no anomalies identified nor imaged. Upper, thoracic and lower spine appear normal. Both arms and legs noted. Amniotic Fluid: Adequate. Maternal adnexa: No significant findings. Measurements: Average ultrasound age 20weeks 1day. Estimated due date by ultrasound age 1110/09/2023. Estimated weight 320g BPD = 20weeks 5days OFD = 20weeks 5days HC = 20weeks 0 days AC = 20weeks 3days FL = 19weeks 3days Growth Percentile= 33 percent Heart Rate = 153bpm Cerebellum = 20weeks 5days Humerus = 19weeks 5days HC/AC is 1.15 CI is 0.78 FL/BPD is 0.63 FL/AC is 0.2 IMPRESSION: 1. Viable fetus in the breech presentation with an anterior placenta grade 1. 2. The fluid is within normal limits. 3. Anatomical scan appears normal. 4. Size and dates are congruent. Dictated by: Grayson Lubin MD 05/23/2023 17:00 Grayson Lubin MD in OV 05/23/2023 17:00
== END ==
PROVIDERS: PCP Internal Medicine Adolescent Medicine; Visit Provider Obstetrics & Gynecology
DX: Z3A.20 20 weeks gestation of pregnancy (principal); Z34.92 Encounter for supervision of normal pregnancy, unspecified, second trimester
CPT/HCPCS: 76811

== ENCOUNTER → 2023-06-27 09:48 | Outpatient (CLI) | payer OTHER, SELFPAY ==
[2023-06-27 10:23] LABS: Glucose,Fasting 88 mg/dl (74-100)
[2023-06-27 10:28] LABS: Basophils % 0.2 % (0.1-2.0); Eosinophils # 0.1 K/mm3 (0.0-0.4); Eosinophils % 0.6 % (0.1-12.0); Hematocrit 35.5 % (37.0-47.0); Hemoglobin 11.9 g/dL (12.2-16.2); Lymphocytes # 1.5 K/mm3 (0.7-4.5); Lymphocytes % 14.3 % (10-50); Mean Corpuscular HGB Conc 33.6 g/dL (31.8-35.4); Mean Corpuscular Hemoglobin 28.7 pg (27.0-31.2); Mean Corpuscular Volume 85.5 fl (81-99); Mean Platelet Volume 8.4 fl (7.4-10.4); Monocytes # 0.5 K/mm3 (0.1-1.0); Monocytes % 4.6 % (1.7-9.3); Neutrophils # 8.4 K/mm3 (1.8-7.8); Neutrophils % 80.3 % (37.0-80.0); Platelet Count 300 K/mm3 (142-424); Red Blood Count 4.15 M/mm3 (4.20-5.40); Red Cell Distribution Width 13.9 % (11.5-17.5); White Blood Count 10.4 K/mm3 (4.8-10.8)
[2023-06-27 12:20] LABS: Glucose 1 Hour 123 mg/dL (74-100)
== END ==
PROVIDERS: PCP Internal Medicine Adolescent Medicine; Visit Provider Obstetrics & Gynecology
DX: Z34.92 Encounter for supervision of normal pregnancy, unspecified, second trimester (principal); Z3A.21 21 weeks gestation of pregnancy
CPT/HCPCS: 36415; 82951; 85025

== ENCOUNTER → 2023-08-15 12:57 | Outpatient (CLI) | payer OTHER, SELFPAY ==
--- NOTE | 2023-08-15 12:57 | US_ITS ---
PROCEDURE: US OB BIOPHYSICAL PROFILE CLINICAL INDICATION: ETHEL/ DECREASED MOVEMENT COMPARISON: Anatomy scan May 23, 2023. FINDINGS: Transabdominal sonographic images of the uterus were obtained. From her established due date she is 32weeks 0 days. The following parameters are obtained: Viable fetus in the breech presentation with an anterior placenta grade 1. Average ultrasound age is 33weeks 2days. Estimated due date by ultrasound is 10/01/2023. Estimated weight is 4lb 8oz. The cervix measures 3.7 cm. heart rate: 130bpm bpm. BPD: 32weeks 2days OFD: 32weeks 2days HC: 33 weeks 1 day AC: 33 weeks 0 days FL: 32 weeks 2 days HC/AC: 1.03 Cephalic index: 0.83 FL/BPD: 0.72 FL/AC: 0.22 67Percentile Amniotic fluid index: 11.54cm Qualitative AFV: 2 breathing movements: 2 Gross body movements: 2 Tone: 2 Biophysical profile score: 8 No obvious anomalies evident.Kidneys, four-chamber heart, three-vessel cord appear normal. IMPRESSION: 1. Viable fetus in the breech presentation with an anterior placenta grade 1. 2. The fluid is within normal limits. Amniotic fluid index is 11.54 cm. 3. Biophysical profile 8/8 with good breathing movement and movement seen. 4. biometry is consistent with the dates with the fetus currently 67 percentile. Dictated by: Grayson Lubin MD 08/16/2023 09:37 Grayson Lubin MD in OV 08/16/2023 09:37
== END ==
PROVIDERS: PCP Internal Medicine Adolescent Medicine; Visit Provider Obstetrics & Gynecology
DX: O28.8 Other abnormal findings on antenatal screening of mother (principal); O36.8190 Decreased fetal movements, unspecified trimester, not applicable or unspecified; Z3A.31 31 weeks gestation of pregnancy
CPT/HCPCS: 76816; 76819

== ENCOUNTER → 2023-09-21 09:03 | Outpatient (CLI) | payer OTHER, SELFPAY ==
--- NOTE | 2023-09-21 09:04 | US_ITS ---
PROCEDURE: US OB BIOPHYSICAL PROFILE CLINICAL INDICATION: decreased movement COMPARISON: ULTRASOUND AUGUST 15, 2023 FINDINGS: Transabdominal sonographic images of the uterus were obtained. From her established due date she is 37weeks 2days. The following parameters are obtained: Viable fetus in the BREECH presentation with an anterior placenta grade 2 Average ultrasound age is 38weeks 4days. Estimated due date by ultrasound is 10/01/2023. Estimated weight is 7lb 14oz, 3585 grams. heart rate: 123bpm bpm. BPD: 39 weeks 2 days HC: 38 weeks 3 days AC: 39 weeks 5 days FL: 36 weeks 4 days HC/AC: 0.94 FL/BPD: 0.74 FL/AC: 0.2 90 percentile Amniotic fluid index: 11.16cm, MVP 4.1 cm. Qualitative AFV: 2 breathing movements: 2 Gross body movements: 2 Tone: 2 Biophysical profile score: 8 No obvious anomalies evident.Kidneys, bladder, four-chamber heart, three-vessel cord appear normal. IMPRESSION: 1. Viable fetus in the BREECH presentation with an anterior placenta grade 2. 2. The fluid is within normal limits with an amniotic fluid index of 11.2 cm. MVP is 4.1 cm. 3. Biophysical profile 8/8 with good breathing movement seen and good movement seen. 4. Fetus has shown accelerated growth and is large for gestational age currently 90th percentile. The AC is over 2 weeks ahead. Dictated by: Grayson Lubin MD 09/21/2023 11:38 Grayson Lubin MD in [facility] 09/21/2023 11:38
== END ==
PROVIDERS: PCP Internal Medicine Adolescent Medicine; Visit Provider Obstetrics & Gynecology
DX: O36.8130 Decreased fetal movements, third trimester, not applicable or unspecified (principal); Z3A.37 37 weeks gestation of pregnancy
CPT/HCPCS: 76816; 76819

== ENCOUNTER 2023-09-25 00:38 | Inpatient (IN) | payer OTHER, SELFPAY ==
[2023-09-24 22:06] VITALS: BMI 32.9
[2023-09-24 22:19] LABS: Microscopic, Urine URINE MICROSCOPIC (MICROSCOPIC)
[2023-09-24 22:21] LABS: Appearance,Urine CLEAR (Clear); Bilirubin,Urine Negative (Negative); Blood, Urine TRACE-I (Negative); Color,Urine YELLOW (Yellow); Glucose,Urine (UA) Negative (Negative); Ketones,Urine TRACE (Negative); Leukocyte Esterase,Urine 1+ (Negative); Nitrate,Urine Negative (Negative); Protein,Urine Negative (Negative); Urobilinogen,Urine 0.2 EU/dl (0.2)
[2023-09-24 22:28] VITALS: BP 139/88; PULSE 108; RESP 18; TEMP 36.6; O2SAT 97
[2023-09-24 22:33] LABS: Barbiturates Screen,Urine Negative ng/ml (<200); Benzodiazepines Screen,Urine Negative ng/ml (<200)
[2023-09-24 22:34] LABS: Amphetamine/Metha Screen,Urine Negative ng/ml (<1000); Bacteria,Urine 2+ /lpf; RBC,Urine Occasional #/hpf (0-3)
[2023-09-24 22:35] LABS: Cannabinoid Screen,Urine Negative ng/ml (<50); Cocaine Screen,Urine Negative ng/ml (<300)
[2023-09-24 22:36] VITALS: BP 139/88; PULSE 108; RESP 18; TEMP 36.6; O2SAT 97; BMI 32.9
[2023-09-24 22:36] LABS: Methadone Screen,Urine Negative ng/ml (<300)
[2023-09-24 22:37] LABS: Opiate Screen,Urine Negative ng/ml (<300); Phencyclidine Screen,Urine Negative ng/ml (<25)
[2023-09-25 01:07] LABS: Basophils % 0.3 % (0.1-2.0); Eosinophils # 0.1 K/mm3 (0.0-0.4); Eosinophils % 0.6 % (0.1-12.0); Hematocrit 32.4 % (37.0-47.0); Hemoglobin 11.2 g/dL (12.2-16.2); Lymphocytes # 2.3 K/mm3 (0.7-4.5); Lymphocytes % 18.3 % (10-50); Mean Corpuscular HGB Conc 34.5 g/dL (31.8-35.4); Mean Corpuscular Hemoglobin 26.8 pg (27.0-31.2); Mean Corpuscular Volume 77.7 fl (81-99); Mean Platelet Volume 8.9 fl (7.4-10.4); Monocytes # 0.6 K/mm3 (0.1-1.0); Monocytes % 4.7 % (1.7-9.3); Neutrophils # 9.4 K/mm3 (1.8-7.8); Neutrophils % 76.1 % (37.0-80.0); Platelet Count 275 K/mm3 (142-424); Red Blood Count 4.18 M/mm3 (4.20-5.40); Red Cell Distribution Width 14.9 % (11.5-17.5); White Blood Count 12.4 K/mm3 (4.8-10.8)
[2023-09-25 01:12] LABS: Chloride 106 mmol/L (98-107); Sodium 133 mmol/L (136-145)
[2023-09-25 01:13] LABS: Potassium 3.6 mmoL/L (3.5-5.1)
[2023-09-25 01:15] LABS: Alanine Aminotransferase 18 U/L (12-78); Albumin Level 3.8 g/dl (3.5-5.0); Albumin/Globulin Ratio 1.1 (1.1-1.8); Alkaline Phosphatase 149 U/L (38-126); Anion Gap 9.6 mEq/L (5-15); Aspartate Amino Transferase 27 U/L (14-36); Bilirubin,Total 0.4 mg/dl (0.2-1.3); Blood Urea Nitrogen 6 mg/dl (7-17); Carbon Dioxide 21 mmol/L (22.0-30.0); Creatinine Clearance Estimated 236 mL/min (50-200); Estimated Glomerular Filt Rate 143 ml/min (>60); GFR (African American) 173 ML/MIN (>60); Globulin 3.5 g/dL (1.3-3.2); Total Protein,Serum 7.3 g/dl (6.3-8.2)
[2023-09-25 01:16] LABS: Calcium 8.7 mg/dl (8.4-10.2); Glucose 92 mg/dl (74-100)
[2023-09-25 02:39] VITALS: BP 127/57; PULSE 87; RESP 18; TEMP 37.1; O2SAT 97
--- NOTE | 2023-09-25 08:22 | EXP.HP ---
History of Present Illness *Admission Date: 09/24/23 *Reason for visit:: Labor *History of present illness: Maria Elena is a 33yo who presented to L&D at 37w6d gestation with regular painful contractions. Pt was breech on 08/15/23 and 09/21/23 and states desires a delivery regardless of presentation secondary to a bad experience with induction/ [facility] in [facility] . On arrival contractions were every 2-4 minutes. She admitted for delivery. She was given a dose of terbutaline which significantly improved contractions. A+, antibody negative, rubella immune, hepatitis B negative, hepatitis C negative, RPR negative, HIV negative, gonorrhea and Chlamydia negative 1 hour GTT: 123 PFSH PFSH Disclaimer: The information contained in this section may have been updated after the patient was seen, as this information can be updated by other users. 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 Breech presentation Eczema History of pre-eclampsia in prior , currently History of spontaneous x 2 UTI (urinary tract infection) in , antepartum Surgical History No history of previous surgery Family History Other No significant family history Social History Smoking Status: Never smoker alcohol intake: current substance use type: denies use current occupational status: employed Travel in the last 8 weeks: None Review of Systems Review of Systems Review of systems (narrative): Review of Systems Constitutional: Denies fever, chills, and sweats Eyes: Denies vision change/ pain Respiratory: Denies cough and shortness of breath Cardiovascular: Denies chest pain and lightheadedness Gastrointestinal: Admits abdominal pain with contractions. Denies nausea, vomiting. Genitourinary: Denies dysuria and incontinence Musculoskeletal: Denies shoulder pain and back pain Neurological: Denies change in speech or headaches Meds Home Medications and Allergies Home Medications Medication Instructions Recorded Confirmed Type aspirin 81 mg tablet,delayed 81 mg PO DAILY 07/25/23 09/25/23 History release (Karen Low Dose Aspirin) vit no.95-ferrous 1 tab PO DAILY 09/25/23 09/25/23 History fumarate 28 mg-folic acid 800 mcg tablet () New Prescriptions to Start Prescriptions: Allergies Allergy/AdvReac Type Severity Reaction Status Date / Time cefaclor [From [facility]] Allergy Unknown Verified 09/20/23 10:48 Exam Data for Last 24 hours Vital signs and Labs for Last 24 Hours: Temp Pulse Resp BP Pulse Ox O2 Del Method 98.7 F 87 18 127/57 L 97 Room Air 09/25/23 02:39 09/25/23 02:39 09/25/23 02:39 09/25/23 02:39 09/25/23 02:39 09/25/23 02:39 Laboratory Results - last 24 hr 09/24/23 22:00: Urine Color Yellow, Urine Appearance Clear, Urine pH 6.0, Ur Specific [place] 1.020, Urine Protein Negative, Urine Glucose (UA) Negative, Urine Ketones Trace, Urine Blood Trace-i, Urine Nitrate Negative, Urine Bilirubin Negative, Urine Urobilinogen 0.2, Ur Leukocyte Esterase 1+ A, Urine RBC Occasional, Urine WBC 3-5, Ur Squamous Epith Cells 5-10, Urine Bacteria 2+, Urine Opiates Screen Negative, Urine Methadone Screen Negative, Ur Barbituates Screen Negative, Ur Phencyclidine Scrn Negative, Ur Amphetamines Screen Negative, U Benzodiazepines Scrn Negative, Urine Cocaine Screen Negative, U Marijuana (THC) Screen Negative 09/25/23 00:50: WBC 12.4 H, RBC 4.18 L, Hgb 11.2 L, Hct 32.4 L, MCV 77.7 L, MCH 26.8 L, MCHC 34.5, RDW 14.9, Plt Count 275, MPV 8.9, Neut % (Auto) 76.1, Lymph % (Auto) 18.3, [place] % (Auto) 4.7, Eos % (Auto) 0.6, Baso % (Auto) 0.3, Neut # (Auto) 9.4 H, Lymph # (Auto) 2.3, [place] # (Auto) 0.6, Eos # (Auto) 0.1, Baso # (Auto) 0.0, Sodium 133 L, Potassium 3.6, Chl
[2023-09-25 12:45] LABS: Cord Blood PH 7.31 (7.35-7.45)
--- NOTE | 2023-09-25 13:04 | EXP.OP.NOTE ---
Date of procedure: 09/25/23 Pre-op Diagnosis:: 1. 37 weeks 6days gestation, Tiwari 2. Breech presesntation 3. Active labor 4. Desires delivery Post-op Diagnosis:: 1. 37 weeks 6days gestation, Tiwari 2. Breech presesntation 3. Active labor 4. Desires delivery Procedure performed:: Primary Delivery Surgeon:: Xin Woodson DO Roof Tiler(s):: Dr. Stevens SECURITY INSTALLATION TECHNICIAN:: Judah Braga Anesthesia: spinal Estimated blood loss (mL): 400 Operative findings:: 1. Live viable female infant. Weight: 7pounds 4ounces. Apgars 8 and 9 at 1 and 5 minutes respectively 2. Normal-appearing fallopian tubes and ovaries bilaterally Operative note:: Medications: 900 mg IV clindamycin and 5 mg/kg of gentamicin IV EBL: 400mL Summary: Lorin Garza is a 33-year-old -0-2-1 who presented to labor and delivery at 37 weeks and 6 days gestation with regular painful contractions. On admission she was noted to be 1/30/-2. She was given 1 dose of terbutaline for tocolysis following delay. Prior to going back to the OR she was rechecked and noted to be 3/60/-2. On her last ultrasound 4 days ago the was breech and the patient desired a delivery. Procedure explained in its entirety. The patient was counseled on the risks and benefits of section including bleeding, vascular injury, infection, and injury to the surrounding structures. Hemorrhage requiring life saving blood transfusion resulting in blood born viral infection or allergic reaction was explained and the patient consented to blood transfusion. Possible need for further operative measures prolonging recovery time and hospitalization reviewed to include hysterectomy. Procedure explained in its entirety and patient had no further questions. Consented to procedure. The patient was taken back to the operating room where adequate spinal anesthesia was obtained. Pneumatic compression stockings applied to lower extremities. Above listed medications were administered for infection prophylaxis. She was placed in the dorsal supine position with a leftward tilt. Urinary catheter was placed and found to be draining clear urine. The patient was prepped and draped in sterile fashion. Anesthesia was tested and and found to be adequate. A Pfannenstiel skin incision was made with the scalpel. Subcutaneous bleeding vessels were cauterized with the bovie. The incision was taken down to the fascia with the bovie. The fascia was knicked in the midline and extended laterally with sharp dissection. The superior aspect of the fascia was grasped with Gerri clamps and the rectus muscle was taken down bluntly. The rectus muscle was sharply dissected from the midline with Mayos. This process was repeated inferiorly. The rectus muscles were in the midline, peritoneum was identified and entered bluntly. Corey O retractor was placed and the bladder was noted to be out of the operative field. The lower uterine segment was easily identified, sharply incised, and entered bluntly with the surgeon's index finger. Incision was then extended in a superior and inferior fashion by blunt separation. Membranes were ruptured revealing clear fluid. The fetus was in cephalic presentation. The head was carefully elevated out of the pelvis. Fundal pressure was applied when head was brought into incision. The infants head was delivered without difficulty. The shoulder and body followed without complication. The mouth and nose were suctioned with a bulb. The umbilical cord was clamped and cut. was taken to warmer for evaluation by nut cracker. Cord blood was collected. The placenta was delivered via manual extraction and found to be normal and intact. 3 vessel cord was noted. IV Pitocin was initiated. Inside of the uterus was gently cleared of blood and clots with lap sponge. The hysterotomy was closed with 0 Vicryl in a running locked fashion. Imbricating stitch then run with 0 Vicry
[2023-09-25 13:13] VITALS: BP 114/57; PULSE 100; RESP 16; TEMP 36.7; O2SAT 100
[2023-09-25 13:23] VITALS: BP 120/66; PULSE 88; RESP 16; O2SAT 100
--- NOTE | 2023-09-25 13:28 | EXP.ANES.CKL ---
[facility] Disclaimer: The information contained in this section may have been updated after the patient was seen, as this information can be updated by other users. 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 Breech presentation Eczema History of pre-eclampsia in prior , currently History of spontaneous x 2 UTI (urinary tract infection) in , antepartum Surgical History No history of previous surgery Family History Other No significant family history Social History Smoking Status: Never smoker alcohol intake: current substance use type: denies use current occupational status: employed Travel in the last 8 weeks: None [facility] Anesthesia Checklist Patient Identification Patient Identification: Verbal (Name & ) Structural Data Admitted From: Inpatient Planned Operative Procedure/s: c/section Consent for Planned Operative Procedure(s) Verified: Yes NPO Status Verified Time NPO: 00:00 Airway Assessment Mallampati Score:: Class II C-Spine Mobility Assessed: Yes TMJ Mobility Assessed: Yes Dentition: Good Dentition Neurological Assessment Level of Consciousness: Awake, Alert and Appropriate Anesthesia Plan Anesthesia Risk discussed: Yes Anesthesia Plan: Verified ASA Class: II Anesthesia Type: Spinal Preoperative Comments Pre-Operative Comments: tap block exp to pt, pt agrees to proceed
--- NOTE | 2023-09-25 13:30 | P.PNANES_ITS ---
[facility] Anesthesia Record Part I Anesthesia Record I Intake, IV Amount: 1,500 Hydration: Adequate Estimated blood loss (mL): 400 Urine output (mL): 300 Blood Pressure: 114/57 SaO2: 99 Pulse Rate: 94 Airway Patency: Patent Respiratory Rate: 12 Temperature: 97.5 F Patient is:: Awake and Stable Stable to PACU at:: 13:13
[2023-09-25 13:33] VITALS: BP 114/57; BP 114/59; PULSE 87; PULSE 94; RESP 12; RESP 16; TEMP 36.4; O2SAT 100; O2SAT 99
[2023-09-25 13:43] VITALS: BP 116/60; PULSE 85; RESP 16; TEMP 36.7; O2SAT 100
--- NOTE | 2023-09-25 13:57 | SUR.PHASEI ---
1342- detailed report given to monisha shrestha in OB 1343- pt left in stable condition with monisha shrestha in pt room. All VSS, dressings CDI.
[2023-09-25 14:21] LABS: Microscopic,Cath URINE MICROSCOPIC (MICROSCOPIC)
[2023-09-25 14:23] LABS: Appearance,Urine/Cath CLEAR (Clear); Bilirubin,Cath Negative (Negative); Blood, Urine/Cath Negative (Negative); Color,Urine/Cath YELLOW (Yellow); Glucose,Urine/Cath (UA) Negative (Negative); Ketones,Urine/Cath 1+ (Negative); Leukocyte Esterase,Cath Negative (Negative); Nitrate,Cath Negative (Negative); Protein,Urine/Cath Negative (Negative); Urobilinogen,Cath 0.2 EU/dl (0.2)
--- NOTE | 2023-09-25 14:25 | SUR.OPER ---
father of child present, baby girl born alive at 1234, Cord PH 7.31, EBL 400, QBL 296, TAP block performed in OR from [id number]
[2023-09-25 14:34] LABS: Bacteria,Urine/Cath TRACE /lpf; Squamous Epithelial Ur./Cath Occasional #/hpf (0-5); WBC,Urine/Cath Occasional #/hpf (0-3)
[2023-09-25 19:44] VITALS: BP 125/67; PULSE 103; RESP 18; TEMP 36.6; O2SAT 97
[2023-09-26 07:19] LABS: Basophils % 0.3 % (0.1-2.0); Eosinophils # 0.1 K/mm3 (0.0-0.4); Eosinophils % 1.3 % (0.1-12.0); Hematocrit 29.6 % (37.0-47.0); Hemoglobin 10.1 g/dL (12.2-16.2); Lymphocytes # 1.4 K/mm3 (0.7-4.5); Lymphocytes % 15.3 % (10-50); Mean Corpuscular HGB Conc 34.1 g/dL (31.8-35.4); Mean Corpuscular Hemoglobin 26.9 pg (27.0-31.2); Mean Corpuscular Volume 78.8 fl (81-99); Mean Platelet Volume 9.6 fl (7.4-10.4); Monocytes # 0.6 K/mm3 (0.1-1.0); Neutrophils # 7.2 K/mm3 (1.8-7.8); Neutrophils % 77.2 % (37.0-80.0); Platelet Count 224 K/mm3 (142-424); Red Blood Count 3.76 M/mm3 (4.20-5.40); Red Cell Distribution Width 15.1 % (11.5-17.5); White Blood Count 9.3 K/mm3 (4.8-10.8)
--- NOTE | 2023-09-26 07:27 | EXP.ANES.CKL ---
[facility] [place] Disclaimer: The information contained in this section may have been updated after the patient was seen, as this information can be updated by other users. 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 Breech presentation Eczema History of pre-eclampsia in prior , currently History of spontaneous x 2 UTI (urinary tract infection) in , antepartum Surgical History No history of previous surgery Family History Other No significant family history Social History Smoking Status: Never smoker alcohol intake: current substance use type: denies use current occupational status: employed Travel in the last 8 weeks: None [facility] Anesthesia Checklist Patient Identification Patient Identification: Verbal (Name & ) Structural Data Admitted From: Home Planned Operative Procedure/s: labor epidural Consent for Planned Operative Procedure(s) Verified: Yes NPO Status Verified Time NPO: 00:00 Airway Assessment Mallampati Score:: Class II C-Spine Mobility Assessed: Yes TMJ Mobility Assessed: Yes Dentition: Good Dentition Neurological Assessment Level of Consciousness: Awake, Alert and Appropriate Anesthesia Plan Anesthesia Risk discussed: Yes Anesthesia Plan: Verified ASA Class: II Anesthesia Type: Epidural
--- NOTE | 2023-09-26 12:47 | EXP.OB.SPCS ---
OB - PN: Subj Interval history: Maria Elena Ledezma is a 33yo POD#1 from a primary CD at 37w6d gestation secondary to labor, breech presentation, and maternal request. No complications during delivery. She is doing well. Bottle feeding female . Reports lochia is scant. She is ambulating, tolerating PO, voiding, and +BM. Denies dysuria. Reports pain is very well controlled with PO regimen and TAP blocks at this time. Patient comments: no complaints, pain well controlled, incisional pain, tolerating diet and flatus present [place] baby status: doing well and bottle feeding well feeding status: exclusively bottle feeding OB - PN: Obj Exam Vital signs: Temp Pulse Resp BP Pulse Ox O2 Del Method 97.9 F 103 H 18 125/67 97 Room Air 09/25/23 19:44 09/25/23 19:44 09/25/23 19:44 09/25/23 19:44 09/25/23 19:44 09/25/23 19:44 Narrative: General: patient is alert oriented in no acute distress and responds appropriately to questions. Appears to be in minimal pain. resting in bed and doing well HEENT: NCAT, EOMI, moist mucous membranes, neck supple with full ROM Cardiovascular: RRR +S1/S2, no murmurs or rubs Pulmonary: Clear to auscultation bilaterally, nonlabored breathing, symmetric chest rise Abdominal: Fundus below the umbilicus, firm, and tenderness appropriate for the period. Extremities: trace edema, no tenderness or cyanosis noted Skin: Normal turgor, intact, warm.? Negative for erythema, pallor, petechia, or lesions Neurologic: Negative for sensory or motor deficit Psychiatric: Normal affect, normal thought process, good judgment and insight, no depression or anxious mood appreciated. Incision site: Mildly tender.? Dressing in place. No oozing, bleeding, erythema, drainage or signs of infection appreciated around the border of the dressing. Urinary Catheter Management Maddox: Cath placed during this visit: no OB - PN: Obj Data Labs 09/26/23 06:58 09/25/23 00:50 Labs: Laboratory Results - last 24 hr 09/25/23 12:15: Urine Color Yellow, Urine Appearance Clear, Urine pH 7.0, Ur Specific Roberts 1.020, Urine Protein Negative, Urine Glucose (UA) Negative, Urine Ketones 1+, Urine Blood Negative, Urine Nitrate Negative, Urine Bilirubin Negative, Urine Urobilinogen 0.2, Ur Leukocyte Esterase Negative, Urine RBC None, Urine WBC Occasional, Ur Squamous Epith Cells Occasional, Urine Bacteria Trace 09/25/23 12:43: Cord ABG pH 7.31 L 09/26/23 06:58: WBC 9.3, RBC 3.76 L, Hgb 10.1 L, Hct 29.6 L, MCV 78.8 L, MCH 26.9 L, MCHC 34.1, RDW 15.1, Plt Count 224, MPV 9.6, Neut % (Auto) 77.2, Lymph % (Auto) 15.3, [place] % (Auto) 6.0, Eos % (Auto) 1.3, Baso % (Auto) 0.3, Neut # (Auto) 7.2, Lymph # (Auto) 1.4, [place] # (Auto) 0.6, Eos # (Auto) 0.1, Baso # (Auto) 0.0 OB - PN: A/P (1) Breech presentation: Status: Acute (2) : Status: Acute (3) Labor and delivery affected by breech presentation: Status: Acute (4) Active labor at term: Status: Acute (5) Anemia: Status: Acute Plan day: 1 Plan: routine postop care Comments: Stable. POD#1 s/p PLTCS -Doing well. VSS. Serial lochia and fundal checks. -A+/antibody negative -Bottle feeding, female infant. Marva -Contraception: Undecided -Follow-up 2 weeks for routine visit and incision check #Anemia -Hemoglobin: 11.2--> 10.1 -Likely a combination of chronic anemia, physiologic anemia of , and dilution anemia secondary to IV fluids antepartum. - asymptomatic anemia noted. Vitals stable. Continue monitoring. DC with Fe -EBL: 400mL -Continue PO at discharge home, discussed with pt -Dispo: home tomorrow pending mother/ status Time Spent With Patient Total time spent is greater than 50% in coordination of care (as documented) at patient's floor/unit and/or counseling patient: 25 - 35 minutes
--- NOTE | 2023-09-27 11:20 | EXP.DC.SUM ---
General Admission date:: 09/25/23 Discharge date: 09/27/23 HPI HPI HPI: POD # 2 s/p PLTCS Feeling well. Pain controlled. She is formula feeding. Light lochia. Voiding without difficulty and passing flatus. Tolerating regular diet. Denies fever/chills, chest pain and shortness of breath. No headaches, vison changes, lightheadedness/dizziness. Ambulating well ad lana. Hospital Course Hospital Course Hospital Course: Mrs Maria Elena Ledezma is a 33yo who presented to L&D at 37w6d gestation with regular painful contractions. Baby was breech on 08/15/23 and 09/21/23. She elected for a primary early in secondary to a bad experience with induction/ labor in her first . On arrival contractions were every 2-4 minutes. She admitted for delivery. She was given 1 dose of terbutaline for tocolysis following delay. Prior to going back to the OR she was rechecked and noted to be 3/60/-2. She underwent primary on 09/25/23. She delivered a live female baby, Ai, weighing 7 lb 4 oz, APGARs 8, 9. EBL 400 mL. She did well postoperatively. Pain controlled. Formula feeding. Light lochia. Voiding without difficulty and passing flatus. Tolerating regular diet. No fever/chills, chest pain and shortness of breath. No headaches, vision changes, lightheadedness/dizziness. Ambulating well ad alna. Normal hospital course. She was discharged home on POD #2 with instructions to follow-up in the office in 2 weeks. Exam Data for Last 24 hours Vital signs and Labs for Last 24 Hours: Temp Pulse Resp BP Pulse Ox O2 Del Method 97.9 F 103 H 18 125/67 97 Room Air 09/25/23 19:44 09/25/23 19:44 09/25/23 19:44 09/25/23 19:44 09/25/23 19:44 09/25/23 19:44 I & O for Last 24 hours: Intake & Output 09/24/23 09/25/23 09/26/23 09/27/23 23:59 23:59 23:59 23:59 Intake Total 1500 / 1500 Output Total 150 / 150 Balance 1350 / 1350 Weight 204 lb Constitutional Constitutional: no acute distress *Routine HEENT Exam Head: Present normocephalic and atraumatic Eye: Absent conjunctivae pink ENT: Present mucous membranes moist *Routine Neck Exam Neck: Present full ROM *Routine Respiratory Exam Respiratory: Present CTA bilaterally and normal respiratory effort *Routine Cardiovascular Exam Cardiovascular: Present RRR *Routine Abdominal Exam Abdominal: Present soft and normoactive bowel sounds; Absent tenderness or distended Comments: Uterine fundus firm and below umbilicus; pfannenstiel incision clean/dry/intact *Routine Rectal Exam Patient deferred: visual exam *Routine Exam Patient deferred: external exam *Routine Extremities Exam Extremities: Present edema (+2 bilateral lower extremity edema) and full ROM; Absent calf tenderness *Routine Neurological Exam Neurological: Present alert, oriented X3 and moving all extremities Routine Psychiatric Exam Psychiatric: Present normal affect and cooperative DS: Diagnosis Discharge Diagnosis (1) Breech presentation: Status: Acute Code(s): O32.1XX0 - Maternal care for breech presentation, not applicable or unspecified Qualifiers: Fetus number: single or unspecified fetus Qualified Code(s): O32.1XX0 - Maternal care for breech presentation, not applicable or unspecified (2) : Status: Acute Code(s): Z34.90 - Encounter for supervision of normal , unspecified, unspecified trimester Qualifiers: Weeks of gestation: 37 weeks Qualified Code(s): Z3A.37 - 37 weeks gestation of (3) Labor and delivery affected by breech presentation: Status: Acute Code(s): O32.1XX0 - Maternal care for breech presentation, not applicable or unspecified (4) Active labor at term: Status: Acute (5) Anemia: Status: Acute Code(s): D64.9 - Anemia, unspecified Meds Home Medications and Allergies Home Medications Medication Instructions Recorde
== END 2023-09-27 11:52 | disposition home or self-care (01) | DRG 788 ==
LOC: OBOUT 00:39 → OB 00:40
PROVIDERS: Admitting Provider Obstetrics & Gynecology; Visit Provider Obstetrics & Gynecology
PROC: 10D00Z1 Extraction of Products of Conception, Low, Open Approach (ICD-10-PCS; CPT 59514; principal; 2023-09-25 13:00)
DX: O32.1XX0 Maternal care for breech presentation, not applicable or unspecified (principal); Z3A.37 37 weeks gestation of pregnancy; Z37.0 Single live birth; O99.02 Anemia complicating childbirth; D64.89 Other specified anemias
CPT/HCPCS: 59514; 36415; 59025; 80053; 80305; 81001; 82800; 85025; 86850; 87086; 94761; 96365; G0283

== ENCOUNTER 2024-06-02 20:15 | Emergency (ER) | payer OTHER, SELFPAY ==
[2024-06-02 20:17] VITALS: BP 130/93; PULSE 120; RESP 16; TEMP 36.7; O2SAT 100; BMI 25.9
[2024-06-02 20:30] VITALS: BP 124/87; PULSE 90; O2SAT 100
--- NOTE | 2024-06-02 20:37 | XR_ITS ---
PROCEDURE INFORMATION: Exam: XR Left Hand Exam date and time: 06/02/2024 9:01 PM Age: 34 years old Clinical indication: Injury or trauma; Laceration; Hand; Left; Additional info: Laceration to palm TECHNIQUE: Imaging protocol: Radiologic exam of the left hand. Views: 3 or more views. Total images: 3 COMPARISON: No relevant prior studies available. FINDINGS: Bones/joints: No acute fracture or joint dislocation. No concerning bone lesions or calcifications. Unremarkable joint spaces. Soft tissues: Unremarkable soft tissues. No radiopaque foreign body. IMPRESSION: Negative left hand.
--- NOTE | 2024-06-02 20:40 | HMH.EDGENADL ---
Discharge Plan Disposition Patient Disposition: Home, Self-Care Chief Complaint: Wound/Laceration Prescriptions Prescriptions: No Action ondansetron 4 mg tablet,disintegrating 4 mg PO Q8H PRN (Reason: nausea and vomiting) Qty: 16 0RF cefpodoxime 200 mg tablet 200 mg PO Q12H Qty: 10 0RF Rx Instructions: must administer with a meal/food clarithromycin 500 mg tablet 500 mg PO BID 10 Days Qty: 20 0RF sulfamethoxazole-trimethoprim [Bactrim DS] 800-160 mg tablet 1 tab PO BID 5 Days Qty: 10 0RF mupirocin 2 % ointment 1 applic topical BID Qty: 15 1RF PNV cmb#95-ferrous fumarate-FA [] 28 mg iron- 800 mcg Tablet 1 tab PO DAILY oxycodone 5 mg Tablet 5 mg PO Q4HP PRN (Reason: Moderate Pain (4-6)) Qty: 15 0RF ibuprofen 800 mg tablet 800 mg PO Q8H PRN (Reason: pain) Qty: 20 0RF Referrals Follow up/Referrals: Seamus Aldridge MD [Primary Care Provider] - See instructions Clinical Impressions Clinical Impression: Hand laceration Instructions Patient Instructions: DI for Laceration Repair Discharge ED Provider: Junior Landers General Adult HPI General Chief complaint: Wound/Laceration Stated complaint: AO 06-02-24 cut left hand Time Seen by Provider: 06/02/24 20:31 Mode of Arrival: Ambulatory Source of Information: Patient Limitations: No Limitations Description of Symptoms (Recalled from ER Triage Doc. by RN): Pt presents to ED for a L palm laceration. Pt was pitting avacado's and slipped. Lac is approx 1.5 cm and bleeding is controlled. Pt is A&O*4, family is bedside. History of Present Illness HPI narrative: Patient is a 34-year-old female with no pertinent past medical history, right-handed who presents emergency department for evaluation traumatic injury sustained by knife. Patient was cutting an avocado when she inadvertently punctured her palmar surface proximal to her index MCP joint. She feels slight tingliness to her fingertip. Tetanus is not up-to-date. No other acute complaints at this time. Related Data Home Medications Medication Instructions Recorded Confirmed vit no.95-ferrous 1 tab PO DAILY 09/25/23 10/09/23 fumarate 28 mg-folic acid 800 mcg tablet () Previous Rx's Medication Instructions Recorded ibuprofen 800 mg tablet 800 mg PO Q8H PRN pain #20 tabs 09/27/23 oxycodone 5 mg tablet 5 mg PO Q4HP PRN Moderate Pain 09/27/23 (4-6) #15 tabs ondansetron 4 mg disintegrating 4 mg PO Q8H PRN nausea and 12/15/23 tablet vomiting #16 tabs cefpodoxime 200 mg tablet 200 mg PO Q12H #10 tabs 03/07/24 clarithromycin 500 mg tablet 500 mg PO BID 10 days #20 tabs 03/08/24 mupirocin 2 % topical ointment 1 applic topical BID #15 grams 05/27/24 sulfamethoxazole 800 1 tab PO BID 5 days #10 tabs 05/27/24 mg-trimethoprim 160 mg tablet (Bactrim DS) Allergies Allergy/AdvReac Type Severity Reaction Status Date / Time cefaclor [From [facility]] Allergy Unknown Verified 10/09/23 09:52 [facility] Disclaimer: The information contained in this section may have been updated after the patient was seen, as this information can be updated by other users. 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 Breech presentation Eczema History of pre-eclampsia in prior , currently History of spontaneous x 2 UTI (urinary tract infection) in , antepartum Surgical History No history of previous surgery Family History Other No significant family history Social History Smoking Status: Never smoker alcohol intake: current alcohol intake frequency: holidays/special occasions only substance use type: denies use current occupational status: employed Travel in the last 8 weeks: None ROS Obtained: Yes Systems reviewed as appropriate & no additional complaints except as documented Physical Exam General General appearance: alert and in no apparent distress Head Head exam: atraumatic and normocephalic Eye Eye exam: Present PERRL ENT ENT exam: Present mucous membranes moist Neck Neck exam: Present normal inspection Chest Chest inspection: Present normal inspection and symmetric chest wall rise Respiratory Respiratory exam: Present normal lung sounds bilaterally; Absent respiratory distress Cardiovascular Cardiovascular exam: Present regular rate and normal rhythm Abdominal Exam Abdominal exam: Present soft Extremities Exam Extremities exam: Present other (Linear laceration on the palmar surface proximal to the index MCP joint horizontally oriented, 1 cm, hemostatic. Intact range of motion at the index MCP, PIP, DIP joint. Capillary refill preserved. Sensation intact light touch distally.) Neurological Exam Neurological exam: Present alert Psychiatric Psychiatric exam: Present normal affect Skin Skin exam: Present warm and dry Medical Decision Making Kris Inquiry Pt receiving controlled substance: No Vital Signs: 06/02/24 20:17 06/02/24 20:30 06/02/24 21:00 Temperature 98.1 F Temperature Source Oral Pulse Rate 90 84 Pulse Rate [Left] 120 H Respiratory Rate 16 Blood Pressure 124/87 124/80 Blood Pressure [Right Arm] 130/93 H Blood Pressure Mean 94 89 Blood Pressure Mean [Right Arm] 105 02 Sat by Pulse Oximetry 100 100 100 Oxygen Delivery Method Room Air 06/02/24 21:30 Temperature Temperature Source Pulse Rate 114 H Pulse Rate [Left] Respiratory Rate Blood Pressure 146/95 H Blood Pressure [Right Arm] Blood Pressure Mean 112 Blood Pressure Mean [Right Arm] 02 Sat by Pulse Oximetry 98 Oxygen Delivery Method Orders (Tests/Meds): ED MEDICATIONS Discontinued Medications Generic Name Dose Route Start Last Admin Trade Name Freq PRN Reason Stop Dose Admin Tetanus/Reduced Diphtheria/Acell Pertussis 0.5 ml 06/02/24 20:38 06/02/24 21:36 Tet/Diphth/Pert-Adult 0.5ml Syringe IM 06/02/24 20:39 0.5 ml .ONCE ONE Administration ORDERS Category Date Time Status XR hand LT min 3V Stat Exams 06/02/24 20:37 Taken Medical Decision Narrative: In summary patient is a 34-year-old female with past medical history described above who presents emergency department for evaluation of traumatic injury sustained from a laceration. Patient is hemodynamically stable nontoxic-appearing upon arrival, afebrile. Limited workup will be conducted with plain film, Tdap will be updated and then wound will undergo primary repair. Based on depth of wound I do not have concern for traumatic arthrotomy. She is intact to sensation distally although does have some paresthesias. She has full range of motion preserved capillary refill and have no concern for ligamentous injury or arterial injury at this time. X-ray informally inter by me, no fracture or retained foreign body. Wound underwent primary repair at bedside and approximated well. Patient is appropriate for discharge. Procedure: Procedure performed laceration. Preprocedure performed by Junior Landers. Site was palmar laceration proximal to the MCP joint. Metacarpal block was placed with lidocaine with epinephrine followed by ring block total 10 cc. Anesthesia achieved.. Wound was irrigated with 1 L of sterile water with Hibiclens. Repaired with 4-0 Prolene suture in simple interrupted fashion, number of sutures was 4. Wound was well-approximated. Distal capillary refill preserved. Wound was dressed with bacitracin and wrapped with Coban. Patient tolerated procedure well. There were no immediate complications. Critical Care Critical Care Time Critical Care Time: No
[2024-06-02 21:00] VITALS: BP 124/80; PULSE 84; O2SAT 100
[2024-06-02 21:30] VITALS: BP 146/95; PULSE 114; O2SAT 98
[2024-06-02] MEDS: TET/DIPHTH/PERT-ADULT 0.5ML SYRINGE 0.5 ML IM (21:36)
[2024-06-02 21:58] VITALS: BP 124/80; PULSE 77; RESP 18; TEMP 36.9; O2SAT 98
== END 2024-06-02 22:03 | disposition home or self-care (01) ==
PROVIDERS: Emergency Provider Emergency Medicine; PCP Internal Medicine Adolescent Medicine
DX: S61.412A Laceration without foreign body of left hand, initial encounter (principal); W26.0XXA Contact with knife, initial encounter; Z23 Encounter for immunization
CPT/HCPCS: 12001; 73130; 90471; 90715; 99283